=== PATIENT | female | born 1995 | race Caucasian/White ===

== ENCOUNTER 2020-02-29 09:48 | Emergency (ER) | payer BC, SELFPAY ==
[2020-02-29 09:49] VITALS: BP 122/93; PULSE 121; RESP 19; TEMP 36.9; O2SAT 100; BMI 21.8
--- NOTE | 2020-02-29 10:10 | RAD_ITS ---
STUDY: X-RAY CHEST REASON FOR EXAM: Female, 24 years old. Shortness of breath. TECHNIQUE: Single AP portable view of the chest. COMPARISON: None. FINDINGS: EKG electrodes are seen. The lungs are clear and expanded. There is no demonstrated pleural abnormality. Normal size heart. Normal mediastinum and jermaine. Normal visualized pulmonary arteries. Normal visualized aortic arch and descending thoracic aorta. Normal visualized thoracic spine. Normal visualized ribs, clavicles, and shoulders. There is no demonstrated abnormality of the visualized soft tissue structures of the upper abdomen. RAD/Chest 1 View (Portable) IMPRESSION: Normal x-ray examination of the chest. Electronically Signed: Marc Waite, at 10:46 EDT , Service support ,
--- NOTE | 2020-02-29 10:11 | EKG12_ITS ---
Test Reason : SOB Blood Pressure : / mmHG Vent. Rate : 100 BPM Atrial Rate : 100 BPM P-R Int : 126 ms QRS Dur : 076 ms QT Int : 346 ms P-R-T Axes : 030 026 049 degrees QTc Int : 446 ms Normal sinus rhythm Normal ECG Confirmed by CAPO COLON ([id number]), editor dictionary GENE MORGAN ([id number]) on 03/02/2020 7:40:06 AM Referred By: ALEJANDRO Confirmed By:CAPO COLON
--- NOTE | 2020-02-29 10:12 | ED.DCSUM_ITS ---
History of Present Illness Chief Complaint: Shortness of Breath Informant: Patient Onset: Yesterday Activity at onset: Exertion Timing: Continuous Quality: Dyspnea on exertion, Wheezing Current Severity: Mild Maximum Severity: Severe Worsened by: Exertion Relieved by: Rest - partially Associated Symptoms: Cough - [employer], especially last night after exertional dyspnea episode. 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 However last night she was more short of breath than usual, she states she has been having episodes like this with dyspnea, wheezing, chest tightness with exertion since November when she had a febrile syndrome that may have been COVID-19. She states she had fevers, sore throat, GI symptoms, she was seen at an urgent care and at the time testing was not readily available for the general noncritically ill public, and she was advised that she did not meet criteria for testing so that she should quarantine at home on her own which she did and made it through. However now, ever since then she has had symptoms like this that were much worse last night. She denies any leg swelling or calf pains or history of DVT or PE. She is healthy otherwise without asthma. She has had no syncopal episodes. Past Medical History - Allergies and Home Meds Allergies/Adverse Reactions: Allergies No Known Allergies Allergy (Verified 02/29/20 09:48) Primary Care Physician: Jim Aldana MD [STAFF PHYSICIAN] - Past Medical History: None Surgical History: no surgical history Lives: Spouse/ Significant Other Smoking Status: Current some day smoker Drugs: None Review of Systems General: Reports: Malaise. Denies: Chills, Fever, Sweats Eyes: Denies: Visual changes - bilaterally, Diplopia ENT: Denies: Bilateral ear pain, Rhinorrhea, Sore throat Cardiovascular: Reports: Chest pain, Heart racing. Denies: Palpitations Respiratory: Reports: Dyspnea, Cough, Dyspnea on exertion. Denies: Sputum, Orthopnea Gastrointestinal: Denies: Abdominal pain, Nausea, Vomiting, Diarrhea, Melena, Hematochezia Genitourinary: Denies: Dysuria, Hematuria, Frequency Musculoskeletal: Denies: Back pain, Extremity Pain Skin: Reports: Rash - recent sunburn to much of body, only very mild discomfort. Denies: Wounds Neurological: Denies: Headache, Weakness, Numbness Physical Exam Vital Signs/Narrative: Vital Signs Temp Pulse Resp BP Pulse Ox 02/29/20 09:49 98.4 F 121 H 19 H 122/93 H 100 Inital Vital Signs reviewed: Yes General: Well nourished, Well developed, No Acute Distress Head: Normocephalic, Atraumatic Eyes: Perrl, EOMI ENT: Moist mucous membranes, No rhinorrhea Neck: Supple, Nontender, No JVD Cardiovascular: Regular rate, Regular rhythm, No murmurs, Tachycardia Respiratory: No distress, CTA bilaterally, Chest nontender Abdomen: Soft, Nontender, Nondistended, Normal bowel sounds Back: Nontender, Normal Inspection Extremities: Nontender, No edema Skin: Normal color, Rash - nontender mild, blanching sunburn without blistering throughout most of body Neurological: Alert, Oriented x3, Cranial nerves II-XII grossly intact, Normal Strength, Normal Sensation, Normal Gait Psychological: Normal affect, Normal Mood Diagnostic/Tx/Re-eval Impressions Chest X-Ray 02/29/20 10:10 IMPRESSION: Normal x-ray examination of the chest. Electronically Signed: Marc Mariann, at 10:46 EDT , Service support , 02/29/20 10:10 Chest 1 View (Portable) [RAD] Stat Laboratory Results 02/29/20 02/29/20 02/29/20 10:11 10:11 10:11 WBC 7.6 RBC 4.84 Hgb 14.3 Hct 43.6 MCV 90.1 MCH 29.5 MCHC 32.8 RDW Std Deviation 39.7 RDW Coeff of Luis Fernando 12.1 Plt Count 234 MPV 9.7 Immature Gran % (Auto) 0.300 Neut % (Auto) 49.8 Lymph % (Auto) 38.0 Bureau % (Auto) 9.0 Eos % (Auto) 2.5 Baso % (Auto) 0.4 Absolute Neuts (auto) 3.8 Absolute Lymphs (auto) 2.88 Nucleated RBC % 0 D-Dimer Quant (PE/DVT) 0.44 Sodium 140 Potassium 3.7 Chloride 106 Carbon Dioxide 26.0 Anion Gap 8 BUN 13 Creatinine 1.30 H Estim Creat Clear Calc 69.74 Est GFR (MDRD) Af Amer 64 Est GFR (MDRD) Non-Af 53 L BUN/Creatinine Ratio 10.0 Glucose 88 Calcium 9.4 Troponin I < 0.015 - Rhythm Strip Rhythm Strip: Sinus Tach Rate: 120 Ectopy: None Treatment - Dyspnea: Albuterol Repeat Evaluation: Improved - Along with decreased heart rate - Medical Decision Making Patient feeling better after albuterol. With her negative work-up including d- dimer, this is consistent with reactive airway disease. It is conceivable that she contracted this as a result of COVID 19 that she may have had in November. There is little data out on this however and this is theoretic. It is conceivable that antibody testing may be helpful to see if that is what she had then, however there are false positives known at this time with patients that have had [id number] coronavirus colds in the past, reacting positive to IgG. At this time I think giving her a prescription for albuterol inhaler and treat her like exercise-induced asthma, with a wait and see prescription for prednisone would be reasonable, along with outpatient follow-up. She is comfortable with that plan. ED Disposition - Plan for ED Patient: Disposition: Home or Assisted Living Diagnosis: Reactive airway disease, Chest pain, non-cardiac Instructions: ED REACTIVE AIRWAY DISEASE Adult Prescriptions: Prednisone [Deltasone] 40 mg PO DAILY #10 tab Prescription Printed Albuterol Inhaler [Ventolin Hfa] 1 - 2 puff INHALATION Q4H PRN PRN #1 inhaler PRN Reason: Wheezing Transmission Status: Pending to [facility]/pharmacy #[id number] Referrals: Doctor,Your [STAFF PHYSICIAN] - 1 Week if not improving
--- NOTE | 2020-02-29 10:14 | NURSING ---
NO OLD EKGS
[2020-02-29] MEDS: Albuterol 2.5 MG/3 ML VIAL.NEB. INHALATION (10:22)
[2020-02-29 10:23] VITALS: PULSE 99; RESP 18
[2020-02-29 10:28] LABS: Absolute Lymphocyte Count 2.88 X10^3/uL (0.83-4.51); Absolute Neutrophil Count 3.8 X10^3/uL (2.0-7.7); Basophil# 0.03 X10^3/uL; Basophil% 0.4 % (0-1); Eosinophil# 0.19 X10^3/uL; Eosinophils% 2.5 % (0-5); Hematocrit 43.6 % (37-47); Hemoglobin 14.3 g/dL (12.0-15.0); Lymphocyte # 2.88 X10^3/ul (4.0); Mean Corp Hgb Conc 32.8 g/dL (32-36); Mean Corpuscular Hgb 29.5 pg (27.0-32.0); Mean Corpuscular Volume 90.1 fL (81-99); Mean Platelet Vol. 9.7 fl (6.2-12.0); Monocyte# 0.68 X10^3/uL; NRBC Flagged by Analyzer 0 % (0-5); Neutrophil # 3.77 X10^3/uL (2.7-7.7); Neutrophil % 49.8 % (47-70); Platelet Count 234 K/mm3 (150-450); RBC Distribution Width CV 12.1 % (11.6-14.6); RBC Distribution Width SD 39.7 fl (35.1-43.9); Red Blood Count 4.84 M/mm3 (4.2-5.4); White Blood Count 7.6 K/mm3 (4.4-11.0)
[2020-02-29 10:36] LABS: D-Dimer Quantitative (DVT/PE) 0.44 FEU/ug/m (0.27-0.49)
[2020-02-29 10:39] LABS: BUN 13 mg/dL (7-18); Calcium,Total 9.4 mg/dL (8.5-10.1); Chloride 106 mmol/L (98-107); EST Glomerular Filtration Rate 53 mL/min (>60); Est Glom Filt Rate - Afr Amer 64 mL/min (>60); Estimated Creatinine Clearance 69.74 ml/min; Glucose 88 mg/dL (74-106); Potassium 3.7 mmol/L (3.5-5.1); Sodium Level 140 mmol/L (136-145)
[2020-02-29 10:40] LABS: Anion Gap 8 (5-15)
[2020-02-29 11:45] VITALS: BP 103/70; PULSE 85; RESP 19; O2SAT 100
== END 2020-02-29 11:59 | disposition home or self-care (01) ==
PROVIDERS: Emergency Provider Emergency Medicine
DX: J45.909 Unspecified asthma, uncomplicated (principal); R07.89 Other chest pain; F17.200 Nicotine dependence, unspecified, uncomplicated
CPT/HCPCS: 71045; 80048; 84484; 85025; 85379; 93005; 94640; 99284